=== PATIENT | female | born 1960 | race Caucasian/White ===

== ENCOUNTER 2016-10-24 07:04 | Emergency (ER) | payer OTHER ==
[~2016-10-24] VITALS: Ht 167.6 cm; Wt 70.0 kg
[2016-10-24 07:17] VITALS: BP 144/66; PULSE 77; RESP 19; TEMP 97.6; O2SAT 97
[2016-10-24] MEDS ORDERED: LEVO.075 PO (07:33)
--- NOTE | 2016-10-24 07:57 | PD ---
HPI Chief Complaint: Injury Time Seen by Provider: 07:56 Travel History International Travel<30 days: No Contact w/Intl Traveler<30days: No Traveled to known affect area: No History of Present Illness HPI 56-year-old female presents to the emergency department with complaint of left wrist pain after tripping and falling to her left side and catching herself with her left arm this morning. She denies hitting her head or loss of consciousness. Denies nausea or vomiting. Denies anticoagulants. Reports tingling sensation in her fingers otherwise denies loss of sensation. Reports decreased range of motion at the wrist secondary to pain. Denies fever, chills. Has not taken any medications or tried any treatments to alleviate her symptoms. Pain is aggravated with palpation and movement. No known relieving factors. History of hypothyroidism. Takes Synthroid. No known allergies. Dr. Georges with primary care provider. No other modifying factors or associated signs and symptoms. PFSH Past Medical History Tetanus Vaccination: > 5 Years ?: Not Past Surgical History Surgical History: No Previous Surgery Social History Alcohol Use: Yes Tobacco Use: No Allergies-Medications (Allergen,Severity, Reaction): Coded Allergies: No Known Allergies (Unverified , 10/24/16) Reported Meds & Prescriptions Reported Meds & Active Scripts Active Ibuprofen 800 Mg Tab 800 Mg PO Q6HR PRN Lortab (Hydrocodone-Acetaminophen) 5-325 Mg Tab 1 Tab PO Q4-6H PRN Reported Synthroid (Levothyroxine Sodium) 75 Mcg Tab 75 Mcg PO DAILY Review of Systems Except as stated in HPI: all other systems reviewed are Neg Physical Exam Narrative GENERAL: Well-nourished, well-developed female patient, in no acute distress SKIN: Warm and dry. HEAD: Atraumatic. Normocephalic. EYES: Pupils equal and round. No scleral icterus. No injection or drainage. ENT: Mucosa pink and moist. Airway patent. NECK: Trachea midline. CARDIOVASCULAR: Regular rate. RESPIRATORY: No accessory muscle use. GASTROINTESTINAL: Rounded. MUSCULOSKELETAL: Left wrist with minimal edema and with tenderness on palpation ; decreased range of motion secondary to guarding and pain; no obvious deformity. Left upper extremity supple and nontender 2+ radial pulses and sensory intact. 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 No obvious deformities. No clubbing. No cyanosis. NEUROLOGICAL: Awake and alert. Oriented 3. No obvious cranial nerve deficits. Motor grossly within normal limits. Normal speech. PSYCHIATRIC: Appropriate mood and affect; insight and judgment normal. Data Data Last Documented VS Vital Signs Date Time Temp Pulse Resp B/P Pulse Ox O2 Delivery O2 Flow Rate FiO2 10/24/16 07:17 97.6 77 19 144/66 97 Orders Wrist, Complete ([id number]) (10/24/16 07:52) Ice/Cold Pack (10/24/16 07:52) Ibuprofen (Motrin) (10/24/16 08:00) Splint Or Brace Apply/Monitor (10/24/16 08:33) Sling Cradle Arm (10/24/16 ) MDM Medical Decision Making Medical Screen Exam Complete: Yes Emergency Medical Condition: Yes Medical Record Reviewed: Yes Differential Diagnosis Wrist sprain, wrist fracture, wrist dislocation Narrative Course 56-year-old female with left wrist injury after a mechanical trip and fall. Left approximately supple and nontender 2+ radial pulse and sensory intact without erythema or edema. Ibuprofen administered in the ER. Left wrist x-ray ordered. 1002: Left wrist x-ray concludes Acute nondisplaced fracture involving the left distal radius with involvement of the articular surface. Call to ortho placed. I offered the patient a narcotic for pain and she declined this time. Sugar tong splint applied. Arm sling provided for support. 1040: I discussed the patient with Dr. De La Paz, and he agreed the patient is stable for discharge and can follow up outpatient with orthopedic. I discussed this with the patient and she agreed to follow up with orthopedic and call and make an appointment today. Orthopedic referral provided. Patient verbalized understanding and agreement of treatment plan. Lortab and ibuprofen prescribed for home. Instructed patient to follow up with orthopedic and she verbalizes understanding and agreement with treatment plan. Patient is medically cleared and stable for discharge. Discussed reasons to return to the emergency department. Instructed patient to follow up with primary care provider. Patient agrees with treatment plan. The patients vital signs are stable and the patient is stable for outpatient follow-up and treatment. Patient discharged home, stable and in no acute distress. Diagnosis Primary Impression: Fall Qualified Code: W19.XXXA - Fall, initial encounter Additional Impression: Left wrist fracture Qualified Code: S62.102A - Left wrist fracture, closed, initial encounter Referrals: Isai Ragland MD Primary Care Physician Patient Instructions: General Instructions, Wrist Fracture in Adults (ED) Additional Instructions: Tylenol or ibuprofen as directed and as needed to reduce pain Rest, ice, compress, and elevate extremity to decrease pain and inflammation Wrist Splint for support: do not remove splint to the follow-up with orthopedic Avoid aggravating activity; increase activity as tolerated Follow-up with primary care provider Follow-up with orthopedic within 1-2 days Return to the emergency department immediately with worsening symptoms Med/Other Pt SpecificInfo: Prescription(s) given Scripts Ibuprofen 800 Mg [id number] Mg PO Q6HR PRN (PAIN LESS THAN 5 ON SCALE) #20 TAB Ref 0 Prov:Taniya Reed 10/24/16 Hydrocodone-Acetaminophen (Lortab)5-325 Mg Tab1 Tab PO Q4-6H PRN (PAIN GREATER THAN 5) #20 TAB Ref 0 Prov:Esther Rodriguez MD 10/24/16 Disposition: 01 DISCHARGE HOME Condition: Stable Taniya Reed Oct 24, 2016 07:57
[2016-10-24] MEDS ORDERED: IBUPROFEN 800 MG TAB PO ONE (08:00)
[2016-10-24] MEDS ORDERED: HYDR-3533 PO (09:03)
[2016-10-24] MEDS ORDERED: IBUP800T23 PO (09:06)
--- NOTE | 2016-10-24 09:57 | RADRPT ---
EXAM DATE/TIME: 10/24/2016 08:26 [facility] COMPARISON: No previous studies available for comparison. INDICATIONS : Left wrist pain from fall. MEDICAL HISTORY : None. SURGICAL HISTORY : None. ENCOUNTER: Initial ACUITY: 1 day PAIN SCORE: 9/10 LOCATION: Bilateral wrist FINDINGS: There is evidence of an acute fracture involving the left distal radius with involvement of the artic ular surface. No significant angulation or displacement is noted. Degenerative changes are noted invo lving the first carpometacarpal joint. CONCLUSION: 1. Acute nondisplaced fracture involving the left distal radius with involvement of the articular jayy face. 2. Degenerative changes of the first carpometacarpal joint. Jh High MD on October 24, 2016 at 9:53 Board Certified Radiologist. This report was verified electronically.
[2016-10-30] MEDS ORDERED: MULTTAB67 PO (08:35)
[2016-10-30] MEDS ORDERED: HYDR-3288 PO (11:56)
== END 2016-10-24 10:48 | disposition home or self-care (01) ==
LOC: NEPB 07:04
DX: S52.572A Other intraarticular fracture of lower end of left radius, initial encounter for closed fracture (principal); R20.2 Paresthesia of skin; E03.9 Hypothyroidism, unspecified; W01.0XXA Fall on same level from slipping, tripping and stumbling without subsequent striking against object, initial encounter
CPT/HCPCS: 29125; 73110

== ENCOUNTER → 2016-10-30 | Day surgery (SDC) | payer OTHER ==
[~2016-10-30] VITALS: Ht 166.4 cm; Wt 70.5 kg
[~2016-10-30] MED LIST: *HYDROmorphone PF 1 MG VIAL PERIprocedural Use ONLY ONE; *morphine SULFATE 8 MG/ML PERIprocedure ONLY ONE; ACETAMINOPHEN 1000 MG/100 ML VIAL IV ONE; ACETAMINOPHEN/HYDROcodone 325 MG/7.5 MG TAB PO PRN; APREPITANT 40 MG CAP ONE; APREPITANT 40 MG CAP PO ONE; BUPIVACAINE HCL PF 0.25% 30 ML VIAL ONE; CHLORHEXIDINE GLUCONATE 4% SOLN 120 ML BTL TOP SCH; DEXAMETHASONE SOD PHOS 4 MG/ML VIAL ONE; DO NOT ADM ANY ANTICOAGULANT DRUGS XX PRN; FAMOTIDINE 20 MG/2 ML VIAL ONE; GENTAMICIN SULFATE 80 MG/2 ML VIAL ONE; HYDR-3288 PO; HYDR-3533 PO; IBUP800T23 PO; INSULIN HUMAN REGULAR 1,000 UNITS/10 ML VIAL SQ PRN; LACTATED RINGER'S 1000 ML IV SCH; LEVO.075 PO; LIDOCAINE HCL 1% 50 ML VIAL ONE; METOPROLOL TARTRATE 25 MG TAB PO PRN; MIDAZOLAM HCL 2 MG/2 ML VIAL ONE; MULTTAB67 PO; ONDANSETRON HCL 4 MG/2 ML VIAL ONE; PHENYLEPH/NS 1000 MCG/10 ML SYR IV ONE; PROPOFOL 200 MG/20 ML AMP IV ONE; SODIUM CHLORID 0.9% 500 ML IV SCH; ceFAZolin 2 GM PREMIX 50 ML IV SCH; fentaNYL CITRATE 250 MCG/5 ML AMP ONE
--- NOTE | 2016-10-30 00:04 | MH ---
cc: CARL SANCHEZ DATE OF ADMISSION: 10/30/2016 ADMITTING DIAGNOSIS: Fracture of the right distal radius. HISTORY This is a 56 year-old female who approximately a week ago fell sustaining a fracture of the distal radius. The patient has an intra-articular fragment with subsidence of the radial styloid. She presents for surgical treatment. PAST MEDICAL HISTORY, SOCIAL HISTORY AND FAMILY HISTORY See attached notes. PHYSICAL EXAMINATION A 56 year-old female in moderate distress with her right wrist. HEENT: Normocephalic, atraumatic. Pupils equal, round, reactive to light and accommodation, extraocular motion intact. Neck: Supple. Chest: Clear. Heart: Regular rate and rhythm. Abdomen: Soft, nontender, normoactive bowel sounds. Musculoskeletal: Right wrist, pain with range of motion. The patient is in a splint. Neurologic and vascular examination is within normal limits. IMPRESSION: Fracture, right distal radius. PLAN: Open treatment, internal fixation, possible volar plate of the right distal radius. CONSENT The risks with surgery including infection, bleeding, loss of motion, continued pain, need for further surgery, neurologic and vascular injury. The patient understands these issues and wishes to press on with surgery as outlined above. Carl Sanchez MD [facility] – [place] /10:51 PM /11:58 PM
[2016-10-30 09:03] VITALS: BP 114/61; PULSE 70; RESP 16; TEMP 97.8; O2SAT 99
--- NOTE | 2016-10-30 11:54 | PD.OP ---
cc: Isai Ragland MD Operative Report Date of Surgery: Oct 30, 2016 Preoperative Diagnosis: Fracture left distal radius, intra-articular Postoperative Diagnosis: Same Procedure: Open treatment internal fixation with radial plate, left distal radius Anesthesia: Gen. Surgeon: Isai Ragland Salvager(s): ISABEL Dick Operation and Findings: EBL: Minimal INDICATION: Patient is a 56-year-old female who 7 days ago sustained a fracture of the left distal radius when she fell. She had evidence of an intra- articular distal radius fracture with displacement and impaction of the radial styloid. She presents for surgical treatment NOTE: Jerrica Dick PA-C was present for the entire surgical procedure as my music assistant. In my medical opinion her skill and care was necessary for proper management of this patient. PROCEDURE: The patient was brought to the operating room and anesthetized in the supine position. This patient was positioned with the arm on the arm table. Fluoroscopy was used for visualization. A timeout was done. Antibiotics were given within 1 hour time window. The left arm was scrubbed with alcohol followed by Hibiclens followed by ChloraPrep and draped sterilely. A tourniquet was placed after exsanguination the tourniquet was inflated to 250 mmHg. A radial incision was made along the first dorsal compartment. We used a 2 incision technique. We were able to reduce the fracture and hold it. A radial [employer]ynthe[employer] plate was positioned and pinned proximally and distally. Great care was taken to avoid any injury to the sensory radial nerve was visualized. We placed one locking screw into the distal area of the radial styloid. We then placed a nonlocking screw proximally holding the fracture into reduced reduced position. We then placed 2 additional distal screws followed by a single locking proximal screw. The fracture was reduced anatomically. Intraoperative x-rays were obtained confirming the same. The tourniquet was let down. Hemostasis was controlled with the bipolar cautery. The wound was dry. The skin and subcutaneous tissue was approximated with interrupted 4-0 nylon in a mattress fashion. A sterile dressing and a splint was applied. The patient was awakened and taken to the recovery room in satisfactory condition. COMPANY: [employer], locking plate Isai Ragland MD Oct 30, 2016 11:54
--- NOTE | 2016-10-30 13:31 | RADRPT ---
EXAM DATE/TIME: 10/30/2016 11:40 [facility] COMPARISON: FLUOROSCOPY PORTABLE UP TO 1HR, October 30, 2016, 0:00. INDICATIONS : ORIF left wrist. MEDICAL HISTORY : None. SURGICAL HISTORY : None. ENCOUNTER: Initial ACUITY: 1 day PAIN SCORE: Non-responsive. LOCATION: Left wrist FINDINGS: The patient is post ORIF of a distal left radial fracture. The alignment post fixation is excellent. Air graft note is made of a punctate bone fragment projecting off of the trapezium. This is seen at t he carpal/metacarpal joint at the base of the thumb. CONCLUSION: 1. 2. The alignment of the wrist post splinting. 3. Small bone fragment probably avulsed from the trapezium at the base of the thumb. Felipe Engel MD on October 30, 2016 at 13:28 Board Certified Radiologist. This report was verified electronically.
[2016-10-30 15:28] VITALS: BP 95/48; PULSE 82; RESP 16; TEMP 97.5; O2SAT 100
--- NOTE | 2016-10-30 17:37 | EKG ---
Date Performed: 10/30/2016 Time Performed: 08:34:43 PTAGE: 56 years EKG: Sinus rhythm NORMAL ECG NO PREVIOUS TRACING DOCTOR: Chaz Frances Interpretating Date/Time 10/30/2016 17:35:34
== END | disposition home or self-care (01) ==
LOC: HSDC 07:54
PROVIDERS: ATTEND Orthopaedic Surgery Orthopaedic Surgery of the Spine
DX: S52.572A Other intraarticular fracture of lower end of left radius, initial encounter for closed fracture (principal); W18.30XA Fall on same level, unspecified, initial encounter; Z01.810 Encounter for preprocedural cardiovascular examination
CPT/HCPCS: 01830; 25608; 73100; 76000; 93005; C1713; J0131; J0690; J1100; J1170; J1580; J2250; J2270; J2370; J2405; J3010; J7120; J8501